=== PATIENT | female | born 2005 | race Caucasian/White ===

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

== ENCOUNTER → 2024-04-03 | Outpatient (CLI) | payer BC ==
--- NOTE | 2024-04-03 18:52 | MR ---
EXAMINATION TYPE: MR brain wo con DATE OF EXAM: 04/03/2024 6:41 PM COMPARISON: None. CLINICAL INDICATION: Female, 18 years old with history of R56.9 SEIZURE; PHH, Seizures, hearing loss, forgetfulness TECHNIQUE: Multi planar, multi sequence imaging was performed through the brain including: T1, T2, In version recovery, Diffusion weighted imaging, and gradient echo imaging. No gadolinium was given. FINDINGS: The lockwood-white junctions, ventricular system, basal cisterns appear unremarkable. Midline structures show no abnormality. Diffusion-weighted imaging shows no evidence of restricted diffusion. The suscep tibility weighted images do not reveal any evidence for micro-hemorrhage. The bone marrow signal is within normal limits. Paranasal sinuses and mastoid air cells: No significant paranasal sinus disease. Visualized orbits: Orbital contents are intact. IMPRESSION: 1. No evidence of intracranial mass or acute/subacute infarct. [facility], , 04/03/2024 6:50 PM
== END | disposition home or self-care (01) ==
LOC: RADMRIMAIN 18:05
PROVIDERS: ATTEND Pediatrics
DX: R56.9 Unspecified convulsions (principal); H91.90 Unspecified hearing loss, unspecified ear
CPT/HCPCS: 70551

== ENCOUNTER → 2024-04-09 | Outpatient (CLI) | payer BC ==
[2024-04-10 03:00] LABS: Basophils # (A) 0.01 X 10*3/uL (0.00-0.10); Basophils % (A) 0.2 %; Eosinophils # (A) 0 X 10*3/uL (0.04-0.35); Eosinophils % (A) 0 %; HCT 36.7 % (37.2-46.3); HGB 12.1 g/dL (12.0-15.0); Lymphocytes # (A) 1.01 X 10*3/uL (0.90-5.00); Lymphocytes % (A) 19.2 %; MCH 29.9 pg (27.0-32.0); MCV 90.6 FL (80.0-97.0); Mean Platelet Volume 12.1 FL (9.5-12.2); Monocytes # (A) 0.33 X 10*3/uL (0.20-1.00); Monocytes % (A) 6.3 %; NRBC Per 100 WBC 0 X 10*3/uL (0.00-0.01); Neutrophils % (A) 74.1 %; Platelet Count 223 X 10*3/uL (140-440); RBC 4.05 X 10*6/uL (4.10-5.20); RDW 11.6 % (11.5-14.5); WBC 5.26 X 10*3/uL (4.50-10.00)
[2024-04-10 04:12] LABS: Erythrocyte Sedimentation Rate 9 mm/Hr (0-20)
[2024-04-10 04:55] LABS: % Iron Saturation 16.58 (12.00-45.00); C Reactive Protein <0.30 mg/dL (0.00-0.80); Iron 65 UG/DL (50-170); Rheumatoid Factor, Qnt <15 IU/mL (0-15); Total Iron Binding Capacity 392 UG/DL (228-460)
[2024-04-10 04:56] LABS: ALT 8 U/L (8-44); AST 19 U/L (13-35); Albumin 4.9 g/dL (3.8-4.9); Albumin/Globulin Ratio 1.69 Ratio (1.60-3.17); Alkaline Phosphatase 62 U/L (41-126); Blood Urea Nitrogen 7.7 mg/dL (9.0-27.0); Calcium 9.8 mg/dL (8.7-10.3); Carbon Dioxide 23.1 mmol/L (21.6-31.8); Chloride 106 mmol/L (96-109); Ferritin 30.6 ng/mL (10.0-291.0); Globulin 2.9 g/dL (1.6-3.3); Glucose 86 mg/dL (70-110); Potassium 4.1 mmol/L (3.5-5.5); Sodium 143 mmol/L (135-145); Total Bilirubin 0.3 mg/dL (0.3-1.2); Total Protein 7.8 g/dL (6.2-8.2)
== END | disposition home or self-care (01) ==
LOC: LABWHC1 15:23
PROVIDERS: ATTEND Physician Assistant
DX: E55.9 Vitamin D deficiency, unspecified (principal); R56.9 Unspecified convulsions; R53.83 Other fatigue
CPT/HCPCS: 36415; 80053; 82306; 82607; 82728; 82746; 83540; 83550; 84207; 84425; 84443; 85025; 85652; 86038; 86140; 86431